=== PATIENT | female | born 1960 | race Caucasian/White ===

== ENCOUNTER 2016-07-04 21:10 | Observation (INO) | payer OTHER ==
[~2016-07-04] VITALS: Ht 160 cm; Wt 80.2 kg
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
[2016-07-04 21:38] LABS: BASOPHIL % 0.2 %; EOSINOPHIL % 0.7 %; HEMATOCRIT 36.5 % (33.0-46.0); IMMATURE GRANULOCYTE # 0.1 K/uL (0.0-0.3); LYMPHOCYTE # 1.6 K/uL (0.8-4.0); LYMPHOCYTE % 26.8 %; MCH 32.7 pg (27.0-34.0); MCHC 35.6 gm/dL (32.0-36.5); MCV 91.9 fl (83.0-98.0); MONOCYTE # 0.4 K/uL (0.0-1.0); MONOCYTE % 7.2 %; MPV 9.4 fl (9.4-12.4); NEUTROPHIL # (ANC) 3.9 K/uL (1.8-7.8); NEUTROPHIL % 64.1 %; NRBC % 0 /100WBC (0-0.00); PLATELET COUNT 170 K/uL (150-450); RBC 3.97 M/uL (3.50-5.50); RDW-CV 11.4 % (11.9-14.6); WBC 6.1 K/uL (4.0-11.0)
[2016-07-04 21:47] LABS: INR - (THERAPEUTIC) 0.99 (0.92-1.07); PROTIME 10.4 SECONDS (9.8-11.4); PTT 24 SECONDS (25-32)
[2016-07-04 21:58] LABS: ALBUMIN 3.9 gm/dL (3.5-5.0); ALK PHOS 91 IU/L (33-138); ALT 69 IU/L (12-78); ANION GAP 17.5 (10.0-19.0); AST 35 IU/L (10-40); BLOOD UREA NITROGEN 13 mg/dL (6-24); CALCIUM 8.3 mg/dL (8.5-10.5); CHLORIDE 98 mMol/L (96-110); CO2 18 mMol/L (22-32); CPK 72 IU/L (21-215); CREATININE 0.6 mg/dL (0.5-1.1); ESTIMATED GFR (MDRD EQUATION) > 60; MAGNESIUM 1.5 mg/dL (1.8-2.6); POTASSIUM 3.5 mMol/L (3.7-5.1); SODIUM 130 mMol/L (135-145); TOTAL BILIRUBIN 0.4 mg/dL (0.0-1.5); TOTAL PROTEIN 7.1 g/dL (6.0-8.4)
[2016-07-04 22:48] LABS: BILIRUBIN URINE NEGATIVE (NEGATIVE); BLOOD URINE NEGATIVE /UL (NEGATIVE); COLOR URINE YELLOW (YELLOW); GLUCOSE URINE NEGATIVE (NEGATIVE); KETONE URINE NEGATIVE (NEGATIVE); LEUKOCYTES URINE NEGATIVE /UL (NEGATIVE); NITRITE URINE NEGATIVE (NEGATIVE); PROTEIN URINE NEGATIVE (NEGATIVE); SPEC GRAVITY URINE 1.005 (1.003-1.035); TURBIDITY URINE CLEAR (CLEAR); UROBILINOGEN URINE NORMAL (NORMAL)
[2016-07-04 23:43] LABS: CPK 67 IU/L (21-215)
[2016-07-05] MEDS ORDERED: ECOTRIN325 MG PO (00:29)
[2016-07-05] MEDS ORDERED: VITAMIN D1000 UNIT PO (00:29)
[2016-07-05] MEDS ORDERED: CLARITIN10 MG PO (00:30)
[2016-07-05] MEDS ORDERED: PRAVACHOL20 MG PO (00:31)
[2016-07-05] MEDS ORDERED: SINGULAIR10 MG PO (00:32)
[2016-07-05] MEDS ORDERED: OMEPRAZOLE40 MG PO (00:32)
[2016-07-05] MEDS ORDERED: ELAVIL25 MG PO (00:33)
[2016-07-05] MEDS ORDERED: AMBIEN10 MG PO (00:34)
[2016-07-05] MEDS ORDERED: LEVOTHROID (SY50 MCG PO (00:34)
[2016-07-05] MEDS ORDERED: ESTROVEN 155 M155 MG PO (00:35)
[2016-07-05] MEDS ORDERED: AVAPRO150 MG PO (00:36)
[2016-07-05] MEDS ORDERED: TOPROL XL100 MG PO ×2 (00:37→00:38)
[2016-07-05] MEDS ORDERED: IMDUR30 MG PO (00:38)
[2016-07-05] MEDS ORDERED: NORCO 5-325 TA1 EACH PO (00:43)
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
[2016-07-05 03:05] LABS: PHOSPHORUS 2.3 mg/dL (2.5-4.9)
[2016-07-05 03:06] LABS: BARBITURATE NEGATIVE (NEGATIVE); COCAINE NEGATIVE (NEGATIVE); OPIATES NEGATIVE (NEGATIVE)
[2016-07-05 03:23] LABS: AMPHETAMINE NEGATIVE (NEGATIVE)
--- NOTE | 2016-07-05 05:42 | NUR ---
Significant Event: Patient continues to be alert/oriented x3. Vital signs are stable. Continues on room air. She has denied any pain or discomfort. CIWA scores have been 0. Banana bag and IV magnesium sulfate are currently infusing. Labs to be drawn at 0600. Follow up: Continue to monitor per plan of care.
[2016-07-05 06:20] LABS: ANION GAP 15.1 (10.0-19.0); BLOOD UREA NITROGEN 11 mg/dL (6-24); CALCIUM 8.5 mg/dL (8.5-10.5); CHLORIDE 106 mMol/L (96-110); CO2 21 mMol/L (22-32); CREATININE 0.5 mg/dL (0.5-1.1); ESTIMATED GFR (MDRD EQUATION) > 60; MAGNESIUM 2.4 mg/dL (1.8-2.6); POTASSIUM 4.1 mMol/L (3.7-5.1)
[2016-07-05 06:27] LABS: CPK 67 IU/L (21-215)
[2016-07-05 06:33] LABS: SODIUM 138 mMol/L (135-145)
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
[2016-07-06 04:45] LABS: ANION GAP 13.1 (10.0-19.0); CALCIUM 8.8 mg/dL (8.5-10.5); CHLORIDE 104 mMol/L (96-110); CO2 26 mMol/L (22-32); MAGNESIUM 1.9 mg/dL (1.8-2.6); PHOSPHORUS 3.5 mg/dL (2.5-4.9); POTASSIUM 4.1 mMol/L (3.7-5.1); SODIUM 139 mMol/L (135-145)
[2016-07-06 04:46] LABS: BLOOD UREA NITROGEN 19 mg/dL (6-24); CREATININE 0.8 mg/dL (0.5-1.1); ESTIMATED GFR (MDRD EQUATION) > 60
--- NOTE | 2016-07-06 04:59 | NUR ---
Significant Event: Patient is alert/oriented x3. Vital signs stable. On room air. Denies any pain. CIWA scores have all been 0. AM labs are unremarkable. Up independently in room. Follow up: Dismiss to home today.
[2016-07-06] MEDS ORDERED: FOLIC ACID1 MG PO (10:39)
[2016-07-06] MEDS ORDERED: THERAGRAN-M1 TAB PO (10:42)
[2016-07-06] MEDS ORDERED: THIAMINE HCL100 MG PO (10:44)
--- NOTE | 2016-07-06 13:25 | NUR ---
PATIENT DISMISSED TO HOME WITH PER PRIVATE CAR. TRANSFERED TO CAR BY RN. REVIEWED DISMISSAL INSTRUCTIONS WITH PATIENT, SHE VERBALIZED UNDERSTANDING. GAVE PATIENT INFORMATION SHEETS ABOUT NEW MEDICATIONS. PATIENT STATES HAS NO PAIN, NO FURTHER QUESTIONS.
== END 2016-07-06 11:35 | disposition disaster alternative care site (69) ==
LOC: GMED 21:10 → GPCU 23:39
PROVIDERS: Emergency Medicine; Hospitalist; ADMIT Internal Medicine
DX: F10.229 Alcohol dependence with intoxication, unspecified (principal); F10.239 Alcohol dependence with withdrawal, unspecified; R07.89 Other chest pain; I10 Essential (primary) hypertension; F32.9 Major depressive disorder, single episode, unspecified; E03.9 Hypothyroidism, unspecified; E78.5 Hyperlipidemia, unspecified; K21.9 Gastro-esophageal reflux disease without esophagitis; Z88.0 Allergy status to penicillin; Z79.82 Long term (current) use of aspirin; Z79.899 Other long term (current) drug therapy; Z90.710 Acquired absence of both cervix and uterus; Z98.890 Other specified postprocedural states
CPT/HCPCS: G0378; G0480; J1650; J3010; J3411; J3475; J7030